=== PATIENT | male | born 1995 | race Caucasian/White ===

== ENCOUNTER 2019-04-12 22:08 | Emergency (ER) | payer MEDICAID, OTHER ==
[~2019-04-12] VITALS: Ht 177.8 cm; Wt 72.6 kg
[2019-04-12] MEDS ORDERED: EPIPEN 2-P0.3 MG/0.3 IM (22:18)
--- NOTE | 2019-04-12 22:21 | Emergency Room Report ---
History of Present Illness General Chief Complaint: Allergic Reaction Source: Patient Present Illness HPI 23-year-old male allergic to walnuts presents with acute shortness of breath dyspnea aggravated with movement alleviated by EpiPen, severity is severe, symptoms are constant occurred 30 meds prior to arrival, patient presents for evaluation Allergies: Coded Allergies: MILK (Verified Allergy, Unknown, 04/12/19) NUT - UNSPECIFIED (Verified Allergy, Unknown, 04/12/19) Patient History Past Medical History: see triage record Reviewed Nursing Documentation: PMH: Agreed; PSxH: Agreed Nursing Documentation-PMH Past Medical History: No History, Except For Hx Asthma: Yes Review of Systems All Other Systems: negative except mentioned in HPI Physical Exam Vital Signs Date Time Temp Pulse Resp B/P (MAP) Pulse Ox O2 Delivery O2 Flow Rate FiO2 04/12/19 22:16 98.1 135 22 89 Room Air Sp02 EP Interpretation: reviewed, normal General Appearance: severe distress Head: normocephalic, atraumatic Eyes: bilateral eye PERRL, bilateral eye EOMI ENT: uvula midline, moist mucus membranes Neck: supple, thyroid normal, supple/symm/no masses Respiratory: accessory muscle use, wheezing Cardiovascular #1: normal peripheral pulses, no edema, no gallop, no murmur, tachycardia Gastrointestinal: non tender, soft, no guarding, no rebound Musculoskeletal: normal inspection Neurologic: alert, oriented x3 Psychiatric: mood/affect normal Skin: no rash, warm/dry Procedures Critical Care Time Critical Care Time Given the critical condition in which the patient arrived, the patient was immediately assessed by myself and the nurse, and cardiac monitoring initiated due to the potential for rapid decompensation of the patient's clinical condition. During the course of the patient's stay, I spent a considerable amount of time at the bedside performing serial re-evaluations of the patient's hemodynamic and clinical status because of the recognized potential threat to life or limb in this condition. I then had a chance to review not only all of the available current laboratory and radiographic studies obtained today, but I also reviewed old records available to me at the time. Additionally, any ancillary information available including hospice fellow records were reviewed. Sequential vital signs were obtained. Critical Care time of 30 minutes was performed exclusive of billable procedures. Medical Decision Making Diagnostic Impression: Primary Impression: Anaphylaxis due to food Qualified Codes: T78.00XA - Anaphylactic reaction due to unspecified food, initial encounter ER Course 23-year-old male presents in respiratory distress secondary to anaphylaxis from food Patient was emergently evaluated given epinephrine x2, Benadryl, Solu-Medrol, Pepcid Patient was resuscitated with 2 L of normal saline Patient was also given duo nebs Reevaluation 11:10 PM, all symptoms have subsided patient is back to normal patient has an extra EpiPen Reevaluation 12 PM, patient remains asymptomatic dispo home with return precautions Last Vital Signs Date Time Temp Pulse Resp B/P (MAP) Pulse Ox O2 Delivery O2 Flow Rate FiO2 04/12/19 22:16 98.1 135 22 89 Room Air Disposition: HOME, SELF-CARE Condition: Stable Scripts Epinephrine (Epipen 2-Rufino) 0.3 Mg/0.3 Ml Auto.injct 0.3 MG IM ONCE PRN for anaphylaxis , #1 EA Prov: Tristan Corbin MD 04/13/19 Referrals: [facility] Patient Instructions: Anaphylactic Reaction, [id number]-[id number] Additional Instructions: The patient was provided with discharge instructions, notified to follow-up with a primary care doctor and or specialist in the next 24-48 hours, and to return to the ED if they have worsening of their symptoms. Please note that this report is being documented using [employer] technology. This can lead to erroneous entry secondary to incorrect interpretation by the dictating instrument. Tristan Corbin MD Apr 12, 2019 22:21
[2019-04-12] MEDS ORDERED: Albuterol ud Inhalation HHN ONE (22:30)
[2019-04-12] MEDS ORDERED: DiphenhydrAMINE 50mg/ml Inj IVP ONE (22:30)
[2019-04-12] MEDS ORDERED: Solu-MEDROL 125mg Inj IVP ONE (22:30)
[2019-04-12] MEDS ORDERED: EPINEPHrine 1mg/1ml Amp IM ONE ×2 (22:30)
[2019-04-12] MEDS ORDERED: Ipratropium 0.02% Inh Soln 2.5ml UD HHN ONE (22:30)
--- NOTE | 2019-04-12 22:30 | NUR ---
ED Nurse Note: Recieved pt from home, here with c/o allergic reactin after eating walnuts by accident, pt has severe nut allergy, pt does use epi-pen but the one he heas so he came in here, pt is awake, alert and oriented x 4, ambulatory, no sob or labored breathing, pt skin is flushed and red, mild itching, no nausea or vomiting, pt gowned and immediately palced on cardiac monitoring, spouse at bedside will cohntinue to closely monitor.
--- NOTE | 2019-04-12 23:30 | NUR ---
ED Nurse Note: patient resting in bed comfortably. family at bedside. ao4. nad. vss. pt on room air sat 99%.
[2019-04-12 23:38] VITALS: BP 114/67
[2019-04-13 00:25] VITALS: BP 106/63
[2019-04-13] MEDS ORDERED: EPIPEN 2-P0.3 MG/0.3 IM (00:36)
[2019-04-13 00:40] VITALS: BP 106/63
--- NOTE | 2019-04-13 00:40 | NUR ---
ER DISCHARGE NOTE: Patient is cleared to be discharged per ERMD, pt is aox4, on room air, with stable vital signs. pt was given dc and prescription instructions, pt was able to verbalize understanding, pt id band and iv site removed without complications. pt is able to ambulate with steady gait. pt took all belongings.
== END 2019-04-13 00:44 | disposition home or self-care (01) ==
LOC: EMR 22:20
DX: T78.00XA Anaphylactic reaction due to unspecified food, initial encounter (principal); Z91.018 Allergy to other foods; Z91.011 Allergy to milk products; J45.909 Unspecified asthma, uncomplicated
CPT/HCPCS: 94640; 94664; 96361; 96372; 96374; 96375; J0171; J1200; J2405; J2930; S0028; Z7502; 99291